=== PATIENT | female | born 2005 | race Caucasian/White ===

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

== ENCOUNTER 2023-06-23 11:18 | Outpatient (REF) | payer MEDICAID, SELFPAY ==
[2023-06-25 19:09] LABS: TS Negative Control Passed; TS Panel A 3; TS Panel B 2; TS Positive Control Passed; TSpotTB Negative (Negative)
== END 2023-06-23 11:19 | disposition home or self-care (01) ==
LOC: HO.HHCL 11:18
PROVIDERS: Visit Provider Family Medicine
DX: Z11.1 Encounter for screening for respiratory tuberculosis (principal)
CPT/HCPCS: 36415; 86481

== ENCOUNTER 2023-07-16 09:43 | Outpatient (REF) | payer MEDICAID, SELFPAY ==
[2023-07-16 12:16] LABS: HIV AB/AG Nonreactive (Nonreactive); HIV Num 1 0.06 S/CO (0.00-0.99); ~HepC Num1 0.17 S/CO (0.00-0.79); ~Hepatitis C Antibody Nonreactive (Nonreactive)
[2023-07-20 09:53] LABS: RPR Rapid Plasma Reagin NON-REACTIVE (NON-REACTIVE)
== END 2023-07-16 09:44 | disposition home or self-care (01) ==
LOC: HO.HHCL 09:43
PROVIDERS: Visit Provider Family Medicine
DX: Z11.3 Encounter for screening for infections with a predominantly sexual mode of transmission (principal)
CPT/HCPCS: 36415; 86592; 86803; 87389

== ENCOUNTER 2024-07-18 17:54 | Outpatient (REF) | payer MEDICAID, SELFPAY ==
[2024-07-19 05:51] LABS: CT PCR NOT DETECTED (Not Detect.); NG PCR NOT DETECTED (Not Detect.)
== END 2024-07-18 17:55 | disposition home or self-care (01) ==
LOC: HO.HHCLNP 17:54
PROVIDERS: Visit Provider Family Medicine
DX: Z11.3 Encounter for screening for infections with a predominantly sexual mode of transmission (principal)
CPT/HCPCS: 87491; 87591

== ENCOUNTER 2025-02-25 10:05 | Outpatient (REF) | payer MEDICAID, SELFPAY ==
--- OUTSIDE RECORDS SUMMARY | 2025-02-25 10:00 | XMS_ITS | Encounter Summary ---
Author Organization [employer] Address [address] [place] [address] [address] [place] [address] Care Team Providers Care Polisher Hand Name Role Phone Yuliya Ryan MD Primary Care Provider [phone] Reason for Referral * Consultation (Routine) - Pending Review Specialty Diagnoses / Procedures Referred By Kristopher barbosa Referred To Contact Otolaryngology Diagnoses Pharyngitis, unspecified etiology Yang Higgins MD [address] [place] [id number] Phone: tel: fax: Referral ID Status Reason Start Date Expiration Date Visits Requested Visits Authorized [id number] Pending Review Specialty Services Required 02/25/2025 02/25/2026 1 1 Reason for Visit * Reason Comments Sore Throat Encounter Details Date Type Department Care Team (Late st Contact Info) Description 02/25/2025 10:00 AM EDT Office Visit [facility] [address] [place] [id number] Yang Higgins MD [address] [place] [id number] Pharyngitis, unspecified etiology; Allergic rhinitis, unspecified seasonality, unspecified trigger Social History Tobacco Use Types Packs/Day Years Used Date Smoking Tobacco: Never Passive Smoke Exposure: Never Smokeless Tobacco: Never Depression Answer Date Recorded Patient Health Questionnaire-9 Score 0 07/18/2024 Patient Health Questionnaire-9 Score 0 07/18/2024 Last PHQ-9: Questionnaire Data Not on file 0 07/18/2024 Housing Stability Answer Date Recorded What is your housing situation today? I have diana johnson 07/18/[address] you li ve. Do you have problems with any of the following? None of the above 07/18/2024 Food Insecurity Answer Date Recorded Within the past 12 months, y ou worried that your food would run out before you got money to buy more: Never True 07/18/2024 Within the past 12 months,th e food you bought just didn't last and you didn't have enough money to get more: Never True Transportation Answer Date Recorded In the past 12 months, has l ack of transportation kept you from medical appts, meetings, work or from getting things needed for daily living? No 07/18/2024 Utilities Answer Date Recorded In the past 12 months, has t he electric, gas, oil or water company threatened to shut off services in your home? No 07/18/2024 Depression Answer Date Recorded Patient Health Questionnaire-2 Score 0 07/18/2024 Internet Access Answer Date Recorded Internet Access Q1 Yes 07/18/2024 Internet Access Q2 Not on file 07/18/2024 Comments Unknown Sex and Gender Information Value Date Recorded Sex Assigned at Female 05/05/2022 10:18 AM EDT Legal Sex Female 10:18 AM EDT Gender Identity Female 05/05/2022 10:18 AM EDT Sexual Orientation Straight 05/05/2022 10 :18 AM EDT documented as of this encounter Last Filed Vital Signs Vital Sign Reading Time Taken Comments Blood Pressure 105/74 02/25/2025 9:17 AM EDT Pulse 95 02/25/2025 9:17 AM EDT Temperature 36.8 C (98.2 F) 02/25/2025 9:17 AM EDT Respiratory Rate 20 02/25/2025 9:17 AM EDT Oxygen Saturation 97% 02/25/2025 9:17 AM EDT Inhaled Oxygen Concentration - - Weight 59.8 kg (131 lb 12.8 oz) 02/25/2025 9:17 AM EDT Height - - Body Mass Index 22.03 07/18/2024 9:28 AM EST documented in this encounter Progress Notes * Yang Higgins MD - 02/25/2025 10:00 AM EDT Subjective History was provided by the patient. Braulio Soliz is a 19 y.o. female who presents for evaluation of 3-day duration of sore throat. Denies fever, but some chills. Underlying allergic rhinitis. PCP previously prescribed Zyrtec, but no longer using. Goes to school in [place], [place]. States recurrent Strep pharyngitis (3x/year). Interested in seeing ENT to discuss possible tensillectomy. No known sick contacts. Objective Vitals: 02/25/25 0917 BP: 105/74 BP Location: Left arm Patient Position: Sitting BP Cuff Size: Adult Pulse: 95 Resp: 20 Temp: 98.2 ??F (36.8 ??C) TempSrc: Oral SpO2: 97% Weight: 131 lb 12.8 oz (59.8 kg) Physical Exam Vitals reviewed. Constitutional: Appearance: Normal appearance. She is normal weight. HENT: Head: Normocephalic and atraumatic. Right Ear: Tympanic membrane, ear canal and external ear normal. Left Ear: Tympanic membrane, ear canal and external ear normal. Nose: Nose normal. No congestion or rhinorrhea. Mouth/Throat: Mouth: Mucous membranes are moist. Pharynx: Oropharynx is clear. Posterior oropharyngeal erythema present. No oropharyngeal exudate. Comments: No exudate or thrush. Eyes: Extraocular Movements: Extraocular movements intact. Conjunctiva/sclera: Conjunctivae normal. Pupils: Pupils are equal, round, and reactive to light. Cardiovascular: Rate and Rhythm: Normal rate and regular rhythm. Heart sounds: Normal heart sounds. Pulmonary: Effort: Pulmonary effort is normal. Breath sounds: Normal breath sounds. Abdominal: General: Abdomen is flat. There is no distension. Palpations: Abdomen is soft. Tenderness: There is no abdominal tenderness. There is no right CVA tenderness, left CVA tenderness, guarding or rebound. Musculoskeletal: General: Normal range of motion. Cervical back: Normal range of motion and neck supple. Lymphadenopathy: Cervical: No cervical adenopathy. Skin: General: Skin is warm and dry. Neurological: General: No focal deficit present. Mental Status: She is alert and oriented to person, place, and time. Psychiatric: Mood and Affect: Mood normal. Behavior: Behavior normal. Braulio was seen today for sore throat. Diagnoses and all orders for this visit: Pharyngitis, unspecified etiology - POCT rapid strep A manually resulted - Mononucleosis Test, Qualitative; Future - cetirizine (ZyrTEC) 10 MG tablet; TAKE 1 TABLET BY MOUTH EVERY DAY NEEDED FOR ALLERGIES - Referral to ENT; Future Allergic rhinitis, unspecified seasonality, unspecified trigger - cetirizine (ZyrTEC) 10 MG tablet; TAKE 1 TABLET BY MOUTH EVERY DAY NEEDED FOR ALLERGIES Patient presents to [facility] due to 3-day duration of pharyngitis Rapid Strep test negative today Normal pulmonary exam and no respiratory distress O2 sat reassuring Resume Cetirizine prn Saline gargle also recommended Check Monospot test Referral to ENT due to history of recurrent Strep pharyngitis (requested by the patient) Discussed supportive care with ample hydration, sleep position and rest OTC supportive medications reviewed Droplet precautions discussed Advised to contact the clinic if no improvement of symptoms Indications for UC/ER use reviewed documented in this encounter Plan of Treatment Scheduled Orders Name Type Priority Associated Diagnoses Orde r Schedule Mononucleosis Test, Qualitative Lab Routine Pharyngitis, unspecified etiology Expected: 02/25/2025 (Approximate), Expires: 02/25/2026 Scheduled Referrals Name Type Priority Associated Diagnoses Orde r Schedule Referral to ENT Outpatient Referral Routine Pharyngitis, unspecified etiology Expected: 02/25/2025 (Approximate), Expires: 02/25/2026 documented as of this encounter Procedures Procedure Name Priority Date/Time Associated Diagnosis Comments POCT RAPID STREP A Routine 02/25/2025 9: 43 AM EDT Pharyngitis, unspecified etiology documented in this encounter Results * POCT rapid strep A manually resulted (02/25/2025 9:43 AM EDT) [facility] Rapid Strep A Screen Negative Negative, None Detected Swab 02/25/2025 9:43 AM EDT Yang Higgins MD POINT OF CARE TEST ENTER/EDIT OR DERABLES Final Result documented in this encounter Visit Diagnoses Diagnosis Pharyngitis, unspecified etiology Allergic rhinitis, unspecified seasonality, unspecified trigger documented in this encounter Additional Health Concerns Assessment Noted Time PHQ-9 Depression Total Score: 0 07/18/19 25 9:55 AM EST documented as of this encounter Care Teams Polisher Hand Relationship Specialty Start Date End Date Yuliya Ryan MD [address] [place] [address] PCP - General Family Medicine 07/06/18 documented as of this encounter
--- OUTSIDE RECORDS SUMMARY | 2025-02-25 10:09 | XMS_ITS | Clinical Summary ---
Author Organization [facility] Address [address] [address] Care Team Providers Care Germination Testing Manager Name Role Phone Pcp, No Primary Care Provider Unavailabl e Allergies No known active allergies Medications No known medications Active Problems Problem Noted Date Diagnosed Date Urinary tract infection with hematuria 2 Social History Tobacco Use Types Packs/Day Years Used Date Smoking Tobacco: Never Smokeless Tobacco: Never Tobacco Cessation:Counseling Given: Not Answered Alcohol Use Standard Drinks/Week Comments Never 0 (1 standard drink = 0.6 oz pur e alcohol) Comments Unknown Sex and Gender Information Value Date Recorded Sex Assigned at Not on file Legal Sex Female 10:49 PM EDT Gender Identity Not on file Sexual Orientation Not on file Last Filed Vital Signs Vital Sign Reading Time Taken Comments Blood Pressure 142/72 05/06/2022 11:33 PM EDT Pulse 115 05/06/2022 11:33 PM EDT Temperature 37.6 C (99.7 F) 05/06/2022 11:33 PM EDT Respiratory Rate 17 05/06/2022 11:33 PM EDT Oxygen Saturation 99% 05/06/2022 11:33 PM EDT Inhaled Oxygen Concentration - - Weight 59 kg (130 lb) 05/06/2022 11:33 PM EDT Height 162.6 cm (5' 4 ) 05/06/2022 11:33 PM EDT Body Mass Index 22.31 05/06/2022 11:33 PM EDT Plan of Treatment Health Maintenance Due Date Last Done Comments Chlamydia Screening 2003 HIV Screening 2003 MMR Vaccines (1 of 1 - Stand toño series) 2004 Varicella Vaccines (1 of 2 - 13+ 2-dose series) 2016 HPV Vaccines (1 - 3-dose series) 2018 Meningococcal B Vaccine (1 o f 2 - Standard) 2019 Hepatitis C Screening 2021 DTaP/Tdap/Td Vaccines (1 - Tdap) 2022 Hepatitis B Vaccines (1 of 3 - 19+ 3-dose series) 2022 COVID-19 Vaccine (1 - 2023-2 5 season) 2024 Depression Screening 07/06/2024 Pap Smear 2024 Influenza Vaccine (#1) 2025 HIB Vaccines Aged Out No longer eligi ble based on patient's age to complete this topic Hepatitis A Vaccines Aged Out No long er eligible based on patient's age to complete this topic IPV Vaccines Aged Out No longer eligi ble based on patient's age to complete this topic Meningococcal Vaccine Aged Out No rosana huber eligible based on patient's age to complete this topic Pneumococcal Vaccine: Pediat rics (0 to 5 Years) and At-Risk Patients (6 to 49 Years) Aged Out No longer eligible b ased on patient's age to complete this topic Rotavirus Vaccines Aged Out No longer eligible based on patient's age to complete this topic Insurance [facility] Care Teams Germination Testing Manager Relationship Specialty Start Date End Date Harriet Dahl MA PCP - General Internal Medicine 05/07/22
== END 2025-02-25 10:06 | disposition home or self-care (01) ==
LOC: HO.LAB 10:05
PROVIDERS: PCP Family Medicine; Visit Provider Family Medicine
DX: Z01.84 Encounter for antibody response examination (principal); J02.9 Acute pharyngitis, unspecified
CPT/HCPCS: 36415; 86308